=== PATIENT | female | born 1975 | race Caucasian/White ===

== ENCOUNTER 2017-06-09 00:28 | Emergency (ER) | payer SELFPAY ==
[2017-06-09 04:45] LABS: Basophils % (Auto) 0.7 % (0.0-1.8); Eosinophils % (Auto) 1.9 % (0.0-4.3); Hemoglobin 14.3 gm/dl (10.1-14.3); Mean Corpuscular HGB Conc 34 % (30-34); Mean Corpuscular Hemoglobin 31 pg (28-32); Mean Corpuscular Volume 90 fl (79-97); Platelet Count 316 K/mm3 (140-440); Red Blood Count 4.68 M/mm3 (3.65-5.03); Red Cell Distribution Width 13.4 % (13.2-15.2); White Blood Count 10.6 K/mm3 (4.5-11.0)
--- NOTE | 2017-06-09 09:02 | Emergency Department Report ---
ED HPI - General Chief complaint: Vaginal Bleeding Stated complaint: 6 WKS W/BLEEDING Time Seen by Provider: 06/09/17 08:19 Source: patient Mode of arrival: Ambulatory Limitations: No Limitations - History of Present Illness Initial comments: 41-year-old female here with complaint of vaginal bleeding. Patient states that she's had some mild bleeding since Wednesday. She had an ultrasound yesterday which showed a intrauterine per the patient. Since that time she's had a little increase in her bleeding. She denies abdominal pain. No nausea vomiting lightheaded dizziness. MD Complaint: vaginal bleeding -: Gradual Radiation: none Consistency: constant Improves with: none Worsens with: none Associated symptoms: denies other symptoms Vaginal bleeding: light :: Yes - Related Data Allergies Allergy/AdvReac Type Severity Reaction Status Date / Time No Known Allergies Allergy Unverified 06/09/17 03:48 ED Review of Systems ROS: Stated complaint: 6 WKS W/BLEEDING Other details as noted in HPI Comment: All other systems reviewed and negative Constitutional: denies: chills, fever, weakness Respiratory: denies: cough, shortness of breath, wheezing Cardiovascular: denies: chest pain, palpitations Endocrine: no symptoms reported Gastrointestinal: denies: abdominal pain, nausea, diarrhea Genitourinary: denies: urgency, dysuria, discharge Musculoskeletal: denies: back pain, joint swelling, arthralgia Skin: denies: rash, lesions Neurological: denies: headache, weakness, paresthesias Psychiatric: denies: anxiety, depression ED Past Medical Hx - Past Medical History Previous Medical History?: No - Surgical History Past Surgical History?: No - Family History Family history: no significant - Social History Smoking Status: Never Smoker Substance Use Type: None ED Physical Exam - General Limitations: No Limitations General appearance: alert, in no apparent distress - Head Head exam: Present: atraumatic, normocephalic - Eye Eye exam: Present: normal appearance. Absent: scleral icterus - ENT ENT exam: Present: mucous membranes moist - Neck Neck exam: Present: normal inspection - Respiratory Respiratory exam: Present: normal lung sounds bilaterally. Absent: respiratory distress - Cardiovascular Cardiovascular Exam: Present: regular rate, normal rhythm. Absent: systolic murmur, diastolic murmur, rubs, gallop - GI/Abdominal GI/Abdominal exam: Present: soft, normal bowel sounds. Absent: distended, tenderness, guarding - Extremities Exam Extremities exam: Present: normal inspection - Back Exam Back exam: Present: normal inspection - Neurological Exam Neurological exam: Present: alert, oriented X3 - Psychiatric Psychiatric exam: Present: normal affect, normal mood - Skin Skin exam: Present: warm, dry, intact, normal color. Absent: rash ED Course Vital Signs 06/09/17 06/09/17 06/09/17 02:03 03:34 08:04 Temperature 98.4 F 98.4 F Pulse Rate 65 65 Respiratory 18 18 18 Rate Blood Pressure 138/78 Blood Pressure 138/78 [Right] O2 Sat by Pulse 99 99 99 Oximetry ED Medical Decision Making - Lab Data Result diagrams: 06/09/17 04:16 Laboratory Results - last 24 hr 06/09/17 06/09/17 06/09/17 04:15 04:16 04:16 WBC 10.6 RBC 4.68 Hgb 14.3 Hct 42.0 MCV 90 MCH 31 MCHC 34 RDW 13.4 Plt Count 316 Lymph % (Auto) 19.8 [place] % (Auto) 5.0 Eos % (Auto) 1.9 Baso % (Auto) 0.7 Lymph # 2.1 [place] # 0.5 Eos # 0.2 Baso # 0.1 Seg Neutrophils % 72.6 H Seg Neutrophils # 7.7 HCG, Quant 7143 H Blood Type O POSITIVE Antibody Screen TNR MARY GRACE Antibody Screen Negative - Medical Decision Making Patient is a 41-year-old female with first trimester vaginal bleeding here with complaints of 2 days worth of bleeding. She had an ultrasound yesterday. I do not feel the need to repeat her ultrasound. Her labs are unremarkable. Plan to discharge the patient with follow-up with her poker prop player. Portions of this chart were dictated with dictation software. There may be dictation errors contained within this note. Critical care attestation.: If time is entered above; I have spent that time in minutes in the direct care of this critically ill patient, excluding procedure time. ED Disposition Clinical Impression: Vaginal bleeding in , Threatened in first trimester Disposition: DC-01 TO HOME OR SELFCARE Is pt being admited?: No Condition: Stable Instructions: Threatened Miscarriage (ED) Additional Instructions: Follow-up with her poker prop player Referrals: PRIMARY CAREMD [Primary Care Provider] - 3-5 Days
[2017-06-09 09:18] VITALS: BP 130/74
== END 2017-06-09 09:19 | disposition home or self-care (01) ==
LOC: ED 00:28
DX: O20.0 Threatened abortion (principal)
CPT/HCPCS: 36415; 84702; 85025; 86850; 86900; 86901; 99283

== ENCOUNTER 2018-06-01 20:55 | Emergency (ER) | payer SELFPAY ==
[2018-06-01 22:13] LABS: Basophils # (Auto) 0.1 K/mm3 (0.0-0.1); Basophils % (Auto) 0.6 % (0.0-1.8); Eosinophils # (Auto) 0.2 K/mm3 (0.0-0.4); Eosinophils % (Auto) 1.5 % (0.0-4.3); Hematocrit 38.8 % (30.3-42.9); Hemoglobin 13.3 gm/dl (10.1-14.3); Lymphocytes # (Auto) 1.2 K/mm3 (1.2-5.4); Lymphocytes % (Auto) 8.7 % (13.4-35.0); Mean Corpuscular HGB Conc 34 % (30-34); Mean Corpuscular Hemoglobin 31 pg (28-32); Mean Corpuscular Volume 91 fl (79-97); Monocytes # (Auto) 0.7 K/mm3 (0.0-0.8); Monocytes % (Auto) 5.2 % (0.0-7.3); Platelet Count 336 K/mm3 (140-440); Red Blood Count 4.26 M/mm3 (3.65-5.03); Red Cell Distribution Width 13.4 % (13.2-15.2)
--- NOTE | 2018-06-02 00:25 | Emergency Department Report ---
ED Female HPI - General Chief complaint: Vaginal Bleeding Stated complaint: VAGINAL BLEEDING Time Seen by Provider: 06/02/18 00:23 Source: patient, family, RN notes reviewed Mode of arrival: Ambulatory Limitations: Language Barrier - History of Present Illness Initial comments: gyroscopic instrument mechanic: Nurse Paulina Saha This is a 42-year-old female who is unknown to this provider previously. As far as she knows, she is not currently . She reports that she is 3, para 1. She presents to the ER with a complaint of vaginal bleeding, clots, suprapubic abdominal pain. This has been present for 1 day. It is constant, and does not have exacerbating or relieving factors. The cramping does not radiate anywhere. She denies irritative, obstructive urinary symptoms. MD Complaint: vaginal bleeding, pelvic pain -: Gradual Location: suprapubic Severity: mild Quality: cramping Improves with: none Worsens with: none Are you Now?: No Associated Symptoms: vaginal bleeding, abdominal pain, loss of appetite. denies : vaginal discharge, nausea/vomiting, fever/chills, headaches, dysuria, hematuria, rash, seizure, shortness of breath, syncope, weakness - Related Data Sexually active: Yes Allergies Allergy/AdvReac Type Severity Reaction Status Date / Time No Known Allergies Allergy Verified 06/01/18 21:17 ED Review of Systems ROS: Stated complaint: VAGINAL BLEEDING Other details as noted in HPI Comment: All other systems reviewed and negative ED Past Medical Hx - Past Medical History Previous Medical History?: No - Surgical History Past Surgical History?: No - Social History Smoking Status: Never Smoker Substance Use Type: None ED Physical Exam - General Limitations: Language Barrier General appearance: alert, in no apparent distress - Head Head exam: Present: atraumatic, normocephalic - Eye Eye exam: Present: normal appearance, EOMI. Absent: nystagmus - ENT ENT exam: Present: normal exam, normal orophraynx, mucous membranes moist, normal external ear exam - Neck Neck exam: Present: normal inspection, full ROM - Respiratory Respiratory exam: Present: normal lung sounds bilaterally. Absent: respiratory distress - Cardiovascular Cardiovascular Exam: Present: regular rate, normal rhythm, normal heart sounds. Absent: systolic murmur, diastolic murmur, rubs, gallop - GI/Abdominal GI/Abdominal exam: Present: soft, normal bowel sounds. Absent: distended, tenderness, guarding, rebound, rigid, pulsatile mass - External exam: Present: normal external exam Speculum exam: Present: vaginal bleeding Bi-manual exam: Present: other (escorted by a nurse Paulina Saha) - Extremities Exam Extremities exam: Present: normal inspection, full ROM, normal capillary refill , other (2+ pulses noted in the bilateral upper, lower extremities. Compartments soft. No long bony tenderness. The pelvis is stable.). Absent: tenderness, pedal edema, joint swelling, calf tenderness - Back Exam Back exam: Present: normal inspection, full ROM. Absent: tenderness, CVA tenderness (R), paraspinal tenderness, vertebral tenderness - Neurological Exam Neurological exam: Present: alert, CN II-XII intact, other (Extraocular movements intact. Tongue midline. No facial droop. Facial sensation intact to light touch in the V1, V2, V3 distribution bilaterally. 5 and 5 strength in 4 extremities.. Sensation is intact to light touch in 4 extremities.). Absent : motor sensory deficit - Psychiatric Psychiatric exam: Present: anxious - Skin Skin exam: Present: warm, dry, intact, normal color. Absent: rash ED Course Vital Signs 06/01/18 06/01/18 06/01/18 21:07 23:22 23:30 Temperature 97.4 F L Pulse Rate 95 H Respiratory 20 Rate Blood Pressure 113/67 115/71 102/60 O2 Sat by Pulse 98 99 Oximetry 06/01/18 06/02/18 06/02/18 23:46 00:00 00:16 Temperature Pulse Rate Respiratory Rate Blood Pressure 102/60 102/60 94/61 O2 Sat by Pulse 99 99 100 Oximetry 06/02/18 06/02/18 06/02/18 00:30 00:46 01:00 Temperature Pulse Rate Respiratory Rate Blood Pressure 94/61 96/62 100/67 O2 Sat by Pulse 100 100 Oximetry ED Medical Decision Making - Lab Data Result diagrams: 06/01/18 21:49 Vital Signs 06/01/18 06/01/18 06/01/18 21:07 23:22 23:30 Temperature 97.4 F L Pulse Rate 95 H Respiratory 20 Rate Blood Pressure 113/67 115/71 102/60 O2 Sat by Pulse 98 99 Oximetry 06/01/18 06/02/18 06/02/18 23:46 00:00 00:16 Temperature Pulse Rate Respiratory Rate Blood Pressure 102/60 102/60 94/61 O2 Sat by Pulse 99 99 100 Oximetry 06/02/18 06/02/18 06/02/18 00:30 00:46 01:00 Temperature Pulse Rate Respiratory Rate Blood Pressure 94/61 96/62 100/67 O2 Sat by Pulse 100 100 Oximetry Lab Results 06/01/18 06/01/18 06/01/18 Range/Units 21:27 21:35 21:49 WBC 13.5 H (4.5-11.0) K/mm3 RBC 4.26 (3.65-5.03) M/mm3 Hgb 13.3 (10.1-14.3) gm/dl Hct 38.8 (30.3-42.9) % MCV 91 (79-97) fl MCH 31 (28-32) pg MCHC 34 (30-34) % RDW 13.4 (13.2-15.2) % Plt Count 336 (140-440) K/mm3 Lymph % (Auto) 8.7 L (13.4-35.0) % [place] % (Auto) 5.2 (0.0-7.3) % Eos % (Auto) 1.5 (0.0-4.3) % Baso % (Auto) 0.6 (0.0-1.8) % Lymph # 1.2 (1.2-5.4) K/mm3 [place] # 0.7 (0.0-0.8) K/mm3 Eos # 0.2 (0.0-0.4) K/mm3 Baso # 0.1 (0.0-0.1) K/mm3 Seg Neutrophils % 84.0 H (40.0-70.0) % Seg Neutrophils # 11.3 H (1.8-7.7) K/mm3 HCG, Quant (0-4) mIU/mL Urine Color Red (Yellow) Urine Turbidity Turbid (Clear) Urine pH 7.0 (5.0-7.0) Ur Specific [place] 1.036 H (1.003-1.030) Urine Protein 100 mg/dl (Negative) mg/dL Urine Glucose (UA) 150 (Negative) mg/dL Urine Ketones 20 (Negative) mg/dL Urine Blood Lg (Negative) Urine Nitrite Neg (Negative) Urine Bilirubin Neg (Negative) Urine Urobilinogen < 2.0 (<2.0) mg/dL Ur Leukocyte Esterase Neg (Negative) Urine WBC (Auto) 109.0 H (0.0-6.0) /HPF Urine RBC (Auto) > 182.0 (0.0-6.0) /HPF Urine WBC Clumps 3+ /HPF Blood Type O POSITIVE Antibody Screen Negative 06/01/18 Range/Units 21:49 WBC (4.5-11.0) K/mm3 RBC (3.65-5.03) M/mm3 Hgb (10.1-14.3) gm/dl Hct (30.3-42.9) % MCV (79-97) fl MCH (28-32) pg MCHC (30-34) % RDW (13.2-15.2) % Plt Count (140-440) K/mm3 Lymph % (Auto) (13.4-35.0) % [place] % (Auto) (0.0-7.3) % Eos % (Auto) (0.0-4.3) % Baso % (Auto) (0.0-1.8) % Lymph # (1.2-5.4) K/mm3 [place] # (0.0-0.8) K/mm3 Eos # (0.0-0.4) K/mm3 Baso # (0.0-0.1) K/mm3 Seg Neutrophils % (40.0-70.0) % Seg Neutrophils # (1.8-7.7) K/mm3 HCG, Quant 9707 H (0-4) mIU/mL Urine Color (Yellow) Urine Turbidity (Clear) Urine pH (5.0-7.0) Ur Specific [place] (1.003-1.030) Urine Protein (Negative) mg/dL Urine Glucose (UA) (Negative) mg/dL Urine Ketones (Negative) mg/dL Urine Blood (Negative) Urine Nitrite (Negative) Urine Bilirubin (Negative) Urine Urobilinogen (<2.0) mg/dL Ur Leukocyte Esterase (Negative) Urine WBC (Auto) (0.0-6.0) /HPF Urine RBC (Auto) (0.0-6.0) /HPF Urine WBC Clumps /HPF Blood Type Antibody Screen - Radiology Data Radiology results: report reviewed, image reviewed Print Report Referring Physician: BOGDAN STREET Patient Name: CARLY AJ Date of : 1975 Sex: Female Report Date: 2018-06-02 Report Status: Finalized Findings [facility] [address] [place] [address] Ultrasound Report Signed Patient: CARLY AJ MR#: [id number] : 1975 Acct:[id number] Age/Sex: 42 / F ADM Date: 06/01/18 Loc: ED Attending Dr: Ordering Physician: BOGDAN STREET MD Date of Service: 06/02/18 Procedure(s): US OB transvaginal Accession Number(s): [id number] cc: BOGDAN STREET MD FINAL REPORT EXAM: US OB TRANSVAGINAL HISTORY: vag bleed COMPARISON: None available. TECHNIQUE: Several real-time grayscale and color Doppler images were obtained. Transabdominal and transvaginal exam. FINDINGS: The uterus measures 10.1 x 4.3 x 5.9 centimeters. Best seen on transvaginal exam, there is a soft tissue structure within the endometrial canal at the level the lower uterine segment 8.3 x 5.9 x 6.9 centimeters on transabdominal exam. Technologist notes the patient reports passage of large clots between the transabdominal and transvaginal exam. This does not persist on the transvaginal exam. There is heterogeneous material measuring 2.9 x 2.4 x 3.1 centimeters within the endometrial canal on the transvaginal exam concerning for passing hemorrhagic clot. Findings are most concerning for in progress. No IUP or adnexal masses are demonstrated. The right ovary measures 2.2 x 1.4 x 2.4 centimeters. Left ovary measures 2.4 x 1.5 x 2.2 centimeters. No free fluid. IMPRESSION: Findings compatible with in progress. No IUP or adnexal masses are demonstrated. The ovaries are unremarkable. Correlation with serial beta HCGs and followup exam is suggested. Transcribed By: LMA Dictated By: KWABENA WAITE MD Electronically Authenticated By: KWABENA WAITE MD Signed Date/Time: 06/02/18 0257 - Medical Decision Making Differential diagnosis, including but not limited to: Miscarriage, threatened miscarriage, ectopic , dysfunctional uterine bleeding Assessment and plan: 42-year-old female with vaginal bleeding, found to be , hemoglobin, hematocrit stable, Rh+, pelvic ultrasound demonstrates inevitable miscarriage in progress. Extensive discussion had with patient and family using gyroscopic instrument mechanic, anticipatory guidance is given to the patient and family, patient to return in 2 days for repeat CBC, quantitative hCG. She is hemodynamically stable with a soft benign abdomen, with no rebound, guarding or peritoneal signs. Critical care attestation.: If time is entered above; I have spent that time in minutes in the direct care of this critically ill patient, excluding procedure time. ED Disposition Clinical Impression: Miscarriage Disposition: DC-01 TO HOME OR SELFCARE Is pt being admited?: No Does the pt Need Aspirin: No Condition: Good Instructions: Spontaneous Miscarriage (ED) Additional Instructions: Rest, and avoid heavy lifting. Avoid strenuous physical activities. Avoid sex and sexual activity. Return in 2 days, or follow-up with her private MOTOR COACH OPERATOR doctor in 2 days for repeat CBC, blood counts, and repeat quantitative hCG/ blood test level. Return to the ER right away with new pain, worsened pain, migration of pain, bleeding more than 2 pads soaked per hour, lightheadedness, change in mental status, projectile vomiting, inability to tolerate liquid feeds. Return to the ER right away for new symptoms not present on the initial ER evaluation. Descanse y evite levantar objetos pesados. Evite actividades fsicas extenuantes. Evite el sexo y la actividad sexual. Regrese en 2 louie o ame un seguimiento con quintanilla mdico obstetra / gineclogo privado en 2 louie para repetir el CBC, los recuentos sanguneos y repetir el nivel cuantitativo de anlisis de alex de hCG / embarazo. Regrese a la kristopher de urgencias de inmediato con dolor nuevo, dolor empeorado, migracin de dolor, sangrado de ms de 2 compresas empapadas por hora, aturdimiento, cambio en el estado mental, vmitos con proyectiles, incapacidad para tolerar alimentos lquidos. Regrese a la kristopher de emergencias de inmediato para detectar nuevos sntomas que no estn presentes en la evaluacin inicial de ER. Referrals: PRIMARY CARE, [Primary Care Provider] - 3-5 Days [facility] [Provider Group] - 3-5 Days [facility] [Provider Group] - 3-5 Days [facility] [Provider Group] - 3-5 Days
[2018-06-02 00:28] LABS: Bilirubin,Urine NEG (Negative); Blood,Urine LG (Negative); Color,Urine Red (Yellow); Urobilinogen,Urine < 2.0 mg/dL (<2.0)
[2018-06-02 00:39] LABS: RBC,Urine > 182.0 /HPF (0.0-6.0)
[2018-06-02 02:09] VITALS: BP 100/67
--- NOTE | 2018-06-02 03:01 | Ultrasound Report ---
FINAL REPORT EXAM: US OB < = 14 WEEKS FETUS HISTORY: vag bleed COMPARISON: None available. TECHNIQUE: Several real-time grayscale and color Doppler images were obtained. Transabdominal and transvaginal exam. FINDINGS: The uterus measures 10.1 x 4.3 x 5.9 centimeters. Best seen on transvaginal exam, there is a soft tissue structure within the endometrial canal at the level the lower uterine segment 8.3 x 5.9 x 6.9 centimeters on transabdominal exam. Technologist notes the patient reports passage of large clots between the transabdominal and transvaginal exam. This does not persist on the transvaginal exam. There is heterogeneous material measuring 2.9 x 2.4 x 3.1 centimeters within the endometrial canal on the transvaginal exam concerning for passing hemorrhagic clot. Findings are most concerning for in progress. No IUP or adnexal masses are demonstrated. The right ovary measures 2.2 x 1.4 x 2.4 centimeters. Left ovary measures 2.4 x 1.5 x 2.2 centimeters. No free fluid. IMPRESSION: Findings compatible with in progress. No IUP or adnexal masses are demonstrated. The ovaries are unremarkable. Correlation with serial beta HCGs and followup exam is suggested.
== END 2018-06-02 04:54 | disposition home or self-care (01) ==
LOC: ED 20:55
DX: O03.9 Complete or unspecified spontaneous abortion without complication (principal)
CPT/HCPCS: 36415; 76801; 76817; 81001; 84702; 85025; 86850; 86900; 86901; 99284